=== PATIENT | male | born 1970 | race Caucasian/White ===

== ENCOUNTER 2016-07-22 14:20 | Emergency (ER) | payer OTHER ==
[~2016-07-22 14:20] MED LIST: FLEXERIL10 MG PO; OMEPRAZOLE40 M1 PO; SYMBICORT 160-4.6 GM IH
[2016-07-22] MEDS ORDERED: CHANTIX0.5 MG/TAB PO (14:30)
[2016-07-22] MEDS ORDERED: NORCO 5-325 TA1 EACH PO (15:41)
[2016-07-22] MEDS ORDERED: CYCLOBENZAPRINE10 M1 PO (15:41)
== END 2016-07-22 16:22 ==
LOC: EDMED 14:20
DX: S39.012A Strain of muscle, fascia and tendon of lower back, initial encounter (principal); J45.909 Unspecified asthma, uncomplicated; F17.200 Nicotine dependence, unspecified, uncomplicated; X50.1XXA Overexertion from prolonged static or awkward postures, initial encounter; Y93.89 Activity, other specified; Y99.8 Other external cause status
CPT/HCPCS: J1885; J2270; J3360